=== PATIENT | female | born 1975 | race Caucasian/White ===

== ENCOUNTER → 2020-07-17 | Outpatient (CLI) | payer SELFPAY | LOC: LAB SHORT 11:15 | DX: D48.5 Neoplasm of uncertain behavior of skin (principal) | CPT/HCPCS: 88305 ==

== ENCOUNTER → 2022-01-21 | Outpatient (CLI) | payer BC | END | disposition home or self-care (01) | LOC: LAB 08:27 → LAB SHORT 08:27 | DX: D23.5 Other benign neoplasm of skin of trunk (principal) | CPT/HCPCS: 88305 ==

== ENCOUNTER 2023-01-22 22:18 | Emergency (ER) | payer BC ==
[~2023-01-22] VITALS: Ht 162.6 cm; Wt 79.4 kg
[2023-01-22 22:35] VITALS: BP 150/99
[2023-01-22] MEDS ORDERED: HYDR1TAB94 PO (23:27)
== END 2023-01-22 23:34 | disposition home or self-care (01) ==
LOC: ER 22:18
DX: M25.571 Pain in right ankle and joints of right foot (principal)
CPT/HCPCS: 73630; 99283-25; A9270

== ENCOUNTER 2024-05-06 06:46 | Day surgery (SDC) | payer BC ==
[~2024-05-06] VITALS: Ht 162.6 cm; Wt 84.7 kg
[~2024-05-06 06:46] MED LIST: ALPR.25 PO; ERGO400; HYDR1TAB94 PO; IBUP800 PO; METOPROLOL SUCC25 MG PO; NEURONTIN300 MG PO; SYMBICORT 160-4.6 GM INH; SYMBICORT 80-46.9 GM IH; Vitamin C100 MG
[2024-05-06] MEDS ORDERED: Lactated Ringer's 1,000 ML IV ONE ×2 (07:31→07:58)
[2024-05-06] MEDS ORDERED: propofoL 50 ML IV ONE (07:58)
[2024-05-06 09:08] VITALS: BP 132/94
== END 2024-05-06 09:10 | disposition home or self-care (01) ==
LOC: ORSCSDS 06:46
PROVIDERS: Surgery
PROC: 0DJD8ZZ Inspection of Lower Intestinal Tract, Via Natural or Artificial Opening Endoscopic (ICD-10-PCS; principal; 2024-05-06 08:15)
DX: Z12.11 Encounter for screening for malignant neoplasm of colon (principal); F41.9 Anxiety disorder, unspecified; J45.909 Unspecified asthma, uncomplicated; Z79.899 Other long term (current) drug therapy
CPT/HCPCS: J2704; J7120